=== PATIENT | female | born 1950 | race Caucasian/White ===

== ENCOUNTER → 2018-07-05 | Outpatient (CLI) | payer MEDICARE ==
[~2018-07-05] MED LIST: LORAZEPAM INJ 2 MG/ML VIAL ONE
--- NOTE | 2018-07-08 07:10 | Diagnostic Imaging Report ---
EXAMINATION: MRI of the lumbar spine without contrast HISTORY: Spondylosis, back pain radiating along the back of the right lower extremity with numbness COMPARISON: None. TECHNIQUE: Sagittal T1, T2, STIR; axial T2 and proton density. FINDINGS: It is assumed that there are 5 lumbar vertebrae. Curvature/Alignment: Normal lordosis. Vertebrae: No evidence of recent fracture, infection, or neoplasm. Focal hyperintense lesion in all sequences in the right iliac bone without cortical disruption, periosteal reaction or associated soft tissue mass may represent a bone island versus osteoma. Conus: Normal, terminating at L1 Cauda equina: Unremarkable. Lower thoracic: Unremarkable. Paraspinal soft tissues: Partially visualized small T2 hyperintense foci in both kidneys, probable cysts. Degenerative changes: L1-L2: Unremarkable L2-L3: Minimal symmetric disc bulge without stenoses L3-L4: Minimal symmetric this pole which an mild facet arthrosis. No stenoses L4-L5: Minimal symmetric disc bulge and moderate facet arthrosis without stenoses L5-S1: Small asymmetric to the left disc osteophyte and bilateral facet arthrosis without stenosis IMPRESSION: 1. Minimal degenerative changes of the lumbar spine without spinal canal or foraminal stenosis. No evidence of nerve root compression. 2. Nonspecific nonaggressive appearing partially visualized hypointense lesion in the right iliac bone, comparison to prior studies if available is advised, otherwise a bone scan is recommended. Signed by: Dr. Lakia Orellana M.D. on 07/08/2018 7:07 AM
--- NOTE | 2018-07-08 08:45 | Diagnostic Imaging Report ---
EXAMINATION: MRI of the thoracic spine without contrast HISTORY: Spondylosis, back pain radiating to the right, status post fall. COMPARISON: None. TECHNIQUE: Sagittal T1 without contrast, T2, and STIR; axial T2. Coronal T2. FINDINGS: Curvature: Mild increased upper thoracic kyphosis with very minimal chronic anterior wedging of the T4, T5 and T6 vertebral bodies. Subtle right-sided curvature Vertebrae: No evidence of recent fracture, infection, or neoplasm. T1 hyperintense benign hemangioma in the T5 vertebral body. Discs: Minimal symmetric disc bulges from T3-T4 through T11-T12 without disc herniations, neural spinal canal or foraminal stenoses. Spinal canal: No mass or abnormal blood vessels. Spinal cord: Normal size and signal intensity. Foramina: Unremarkable. Paraspinal soft tissues: Unremarkable. Proximal ribs: No abnormal signal intensity. IMPRESSION: 1. Mild increase upper thoracic kyphosis, with minimal chronic anterior wedging of the upper thoracic vertebral bodies. No acute fractures. 2. No significant degenerative changes of the thoracic spine, no disc herniations, no spinal canal or foraminal stenosis. No evidence of nerve root compression. Signed by: Dr. Lakia Orellana M.D. on 07/08/2018 8:42 AM
== END ==
LOC: MRI 13:31
PROVIDERS: ATTEND Internal Medicine
DX: M47.816 Spondylosis without myelopathy or radiculopathy, lumbar region (principal); M48.04 Spinal stenosis, thoracic region; N83.209 Unspecified ovarian cyst, unspecified side
CPT/HCPCS: 72146; 72148; J2060